=== PATIENT | male | born 1955 | race African-American/Black ===

== ENCOUNTER 2022-09-20 16:45 | Outpatient (CLI) | payer MEDICARE, BC, SELFPAY ==
[2022-09-20 16:48] LABS: Ferritin 927 ng/mL (26-388)
[2022-09-20 17:13] LABS: Iron 44 ug/dL (65-175); Total Iron Binding Capacity 229 ug/dL (250-450); Transferrin Sat 19 % (20-55)
[2022-09-24 17:58] LABS: Result Summary NEGATIVE; Specimen WB Whole Blood
== END 2022-09-20 16:46 | disposition home or self-care (01) ==
LOC: LBO 16:46
PROVIDERS: Visit Provider Internal Medicine Hematology & Oncology
DX: D56.3 Thalassemia minor (principal); E83.19 Other disorders of iron metabolism; R79.89 Other specified abnormal findings of blood chemistry
CPT/HCPCS: 36415; 81256; 82728; 83540; 83550